=== PATIENT | male | born 1995 ===

== ENCOUNTER 2017-07-14 14:08 | Emergency (ER) | payer BC ==
[2017-07-14 14:31] VITALS: BP 112/58
--- NOTE | 2017-07-14 14:50 | UC ---
Respiratory Complaint HPI - HPI Summary HPI Summary: 21 y/o male presents to the urgent care c/o productive cough w/ green phlegm for the past 10 days. Pt reports symptoms started w/ a common cold and now he feels symptoms are coming down. Pt has taking OTC medication to alleviates symptoms w/o any improvement. Pt denies fever, but has felt chills and has not check his temperature. Pt states he hasn't been able to sleep at night time due to cough for the past 2 days. Pt denies SOB, chest pain. abdominal pain, N/V/D. - History of Current Complaint Chief Complaint: UCRespiratory Stated Complaint: COUGH Time Seen by Provider: 07/14/17 14:42 Hx Obtained From: Patient Onset/Duration: Gradual Onset, Lasting Days - 10 days, Still Present, Worse Since - yesterday Timing: Intermittent Episodes Severity Initially: Mild Severity Currently: Moderate Pain Intensity: 0 Pain Scale Used: 0-10 Numeric Character: Cough: Productive, Sputum Description: - green Aggravating Factors: Recumbent Position Alleviating Factors: OTC Meds Associated Signs And Symptoms: Positive: URI, Nasal Congestion. Negative: Fever , Chills, Wheezing - Risk Factors Pulmonary Embolism Risk Factors: Negative Cardiac Risk Factors: Negative Pseudomonas Risk Factors: Negative Tuberculosis Risk Factors: Negative - Allergies/Home Medications Allergies/Adverse Reactions: Allergies Allergy/AdvReac Type Severity Reaction Status Date / Time No Known Allergies Allergy Verified 07/14/17 14:31 PMH/Surg Hx/FS Hx/Imm Hx Previously Healthy: Yes - Pt denies PMHX - Surgical History Surgical History: None - Family History Known Family History: Positive: Diabetes, Respiratory Disease - Asthma - Social History Occupation: Student Lives: Dormitory/Roommates Alcohol Use: Weekly Substance Use Type: None Smoking Status (MU): Never Smoked Tobacco - Immunization History Vaccination Up to Date: Yes Review of Systems Constitutional: Chills Skin: Negative Eyes: Negative ENT: Nasal Discharge, Sinus Congestion Respiratory: Cough - productive Cardiovascular: Negative Gastrointestinal: Negative Genitourinary: Negative Motor: Negative Neurovascular: Negative Musculoskeletal: Negative Neurological: Negative Psychological: Negative Is Patient Immunocompromised?: No All Other Systems Reviewed And Are Negative: Yes Physical Exam - Summary Physical Exam Summary: Vital Signs Reviewed: Yes General: well developed, well nourished male sitting in the examining table w/o any apparent distress Eyes: Positive: Conjunctiva Clear - PERRLA, EOMI, fundi grossly normal ENT: Positive: Normal ENT inspection, Hearing grossly normal, Pharynx normal, Nasal congestion - edematous and erythematous nasal mucosa, Nasal drainage - yellowish drainage, TMs normal. Negative: Tonsillar swelling, Tonsillar exudate Neck: Positive: Supple, Nontender, No Lymphadenopathy Respiratory: no orthopnea or dyspnea. Able to speak in full sentences, no retractions or accessory muscle use, no tripod position, stridor, or head bobbing. Positive breath sounds bilaterally,B/L posterior lungs w/ scattered rhonchi, no lung wheezes, or crackles or rales. Cardiovascular: Positive: RRR, No Murmur, Pulses Normal, Brisk Capillary Refill Abdomen Description: Positive: Nontender, No Organomegaly, Soft. Negative: CVA Tenderness (R), CVA Tenderness (L) Bowel Sounds: Positive: Present Musculoskeletal Exam: Normal Musculoskeletal: Positive: Strength Intact, ROM Intact, No Edema Neurological Exam: Normal Psychological Exam: Normal Skin Exam: Normal Triage Information Reviewed: Yes Vital Signs: Initial Vital Signs Temp 98.6 F 07/14/17 14:29 Pulse 75 07/14/17 14:29 Resp 14 07/14/17 14:29 BP 112/58 07/14/17 14:29 Pulse Ox 100 07/14/17 14:29 UC Diagnostic Evaluation - Laboratory O2 Sat by Pulse Oximetry: 100 Respiratory Course/Dx - Course Course Of Treatment: 21 y/o male presents to the urgent care c/o productive cough w/ green phlegm for the past 10 days. Pt reports symptoms started w/ a common cold and now he feels symptoms are coming down. Pt has taking OTC medication to alleviates symptoms w/o any improvement. Pt denies fever, but has felt chills and has not check his temperature. Pt states he hasn't been able to sleep at night time due to cough for the past 2 days. Pt denies SOB, chest pain. abdominal pain, N/V/D. Hx obtained. Pt with Acute bronchitis on examination. Pt Rx Z-ronda PO and Albuterol inhaler to alleviate bronchospasm. Pt advised to increase fluid intake and eat well. if not improvement or worsening of symptoms to return to the urgent care or f/u with PCP for further management. Pt understood and agreed with plan of care. - Differential Dx/Diagnosis Differential Diagnosis/HQI/PQRI: Asthma, Bronchitis, Influenza, Sinusitis Provider Diagnoses: 1- Acute bronchitis. 2-Cough Discharge - Sign-Out/Discharge Documenting (check all that apply): Discharge/Admit/Transfer - D/c home - Discharge Plan Condition: Stable Disposition: HOME Prescriptions: Azithromyxin RONDA (NF) [Z-Ronda (Zithromax) 250 mg tabs #6] 2 tab PO .TODAY, THEN 1 DAILY #6 tab Benzonatate CAP* [Tessalon 100 MG CAP*] 100 mg PO TID #21 cap Patient Education Materials: Acute Bronchitis (ED) Referrals: No Primary Care Phys,NOPCP [Primary Care Provider] - Additional Instructions: 1-Please take full course of antibiotic to avoid resistance. 2-Take Tessalon PO tabs as directed to alleviate cough. Increase fluid intake, rest and eat well. 3- If symptoms do not improve or worsen or your develop SOB with fever and severe wheezing please go immediately to the ER further evaluation and treatment. 4- F/u with your PCP in 5 days if not improvement of symptoms for further management . - Billing Disposition and Condition Condition: STABLE Disposition: HOME
== END 2017-07-14 15:00 | disposition home or self-care (01) ==
LOC: UCEAST 14:08
DX: J20.9 Acute bronchitis, unspecified (principal); R05 Cough
CPT/HCPCS: 99202; G0463